=== PATIENT | male | born 1990 | race Caucasian/White ===

== ENCOUNTER 2018-01-28 19:36 | Emergency (ER) | payer SELFPAY ==
[~2018-01-28] VITALS: Ht 175.3 cm; Wt 94.1 kg
[2018-01-28 20:14] VITALS: Ht 175.3 cm; Wt 94.1 kg
[2018-01-28 21:55] VITALS: BP 137/77
== END 2018-01-28 21:55 | disposition home or self-care (01) ==
LOC: ED 19:36
DX: S33.5XXA Sprain of ligaments of lumbar spine, initial encounter (principal); J45.909 Unspecified asthma, uncomplicated; V49.9XXA Car occupant (driver) (passenger) injured in unspecified traffic accident, initial encounter; Y93.73 Activity, racquet and hand sports; Y92.89 Other specified places as the place of occurrence of the external cause; Y99.8 Other external cause status

== ENCOUNTER 2018-02-02 20:54 | Emergency (ER) | payer SELFPAY ==
[2018-02-02 22:05] VITALS: BP 133/77
== END 2018-02-02 22:05 | disposition home or self-care (01) ==
LOC: ED 20:54
DX: S39.012A Strain of muscle, fascia and tendon of lower back, initial encounter (principal); J45.909 Unspecified asthma, uncomplicated; V89.2XXA Person injured in unspecified motor-vehicle accident, traffic, initial encounter; Y93.89 Activity, other specified; Y92.89 Other specified places as the place of occurrence of the external cause; Y99.8 Other external cause status